=== PATIENT | female | born 1990 | race Caucasian/White ===

== ENCOUNTER 2016-07-29 00:16 | Emergency (ER) | payer SELFPAY ==
--- NOTE | 2016-08-01 01:31 | ER ---
ADMIT: 07/29/2016 RM/LOC: ER [facility] MR#: [id number] [place], [place] [id number] KARRI NATARAJAN [address] [place], [place] [id number] Emergency Room Report SEX: F AGE: 26 : 1990 DATE: 07/29/2016 ADDENDUM: A 26-year-old female, comes in complaining of a rash. It started several hours ago. It has been changing in location. She has had hives with it. She is not exposed to any allergen that she is aware of and has not been exposed to anything new. She did have some itching in her throat earlier, but no difficulty breathing. She took some Zyrtec and seems like her symptoms are slightly improved. At the time she got here. She is in no distress. Moving air well. No stridor. No wheezes. She does have erythematous slightly urticarial rash on all 4 extremities. Some in her lower abdomen area. She is given a shot of Decadron here and she will be discharged home to use Benadryl if symptoms return and return to the ER for any difficulty breathing or swallowing. Fredo Gramajo MD/ abhishek JOB #: [id number] CC: Fredo Gramajo MD, Attending Physician
== END 2016-07-29 00:50 | disposition home or self-care (01) ==
LOC: ER 00:16
DX: T78.40XA Allergy, unspecified, initial encounter (principal)